=== PATIENT | female | born 1955 | race Caucasian/White ===

== ENCOUNTER 2024-07-12 13:21 | Inpatient (IN) ==
[2024-07-12] MEDS: cefTRIAXone 1 GM VIAL IV ONE (14:05)
[2024-07-12 14:09] LABS: Basophils # (Auto) 0 K/mcL (0.00-0.30); Basophils % (Auto) 0 % (0.0-2.0); Eosinophils # (Auto) 0 K/mcL (0.00-0.70); Eosinophils % (Auto) 0 % (0.0-7.0); Hematocrit 42.7 % (34.1-44.9); Hemoglobin 14.5 g/dL (11.2-15.7); Lymphocytes # (Auto) 1.07 K/mcL (1.50-4.80); Lymphocytes % (Auto) 7.3 % (15.5-49.0); Mean Cell Volume 90.3 fL (80.0-100.0); Mean Platelet Volume 11.4 fL (8.8-12.5); Monocytes # (Auto) 0.92 K/mcL (0.10-0.90); Monocytes % (Auto) 6.2 % (1.0-12.0); Neutrophils % (Auto) 85.7 % (38.0-78.0); Platelet Count 235 K/mcL (140-440); RBC 4.73 M/mcL (3.59-5.38); Red Cell Distribution Width 13.9 % (11.5-14.5); WBC 14.7 K/mcL (4.5-11.0)
[2024-07-12] MEDS: LACTATED RINGERS 1,000 ML IV ONE (14:09)
[2024-07-12 14:26] LABS: Alcohol, Blood < 10.1 mg/dL; Alcohol,Blood < 0.010 gm/dL (<0.010)
[2024-07-12 14:33] LABS: ALT/SGPT 98 U/L (<40); AST/SGOT 100 U/L (<32); Albumin 2.6 gm/dL (3.2-5.2); Albumin/Globulin Ratio 0.6 (1.0-2.3); Alkaline Phosphatase 102 U/L (39-117); Bilirubin,Total 1.5 mg/dL (0.1-1.0); Blood Urea Nitrogen 11 mg/dL (8-23); Calcium 8.6 mg/dL (8.6-10.4); Carbon Dioxide 23 mmol/L (22-30); Chloride 90 mmol/L (96-108); Globulin 4.6 gm/dL (2.2-3.7); Glomerular Filtration Rate 100; Glucose 331 mg/dL (70-105); Potassium 3.5 mmol/L (3.3-5.1); Sodium 127 mmol/L (133-145)
[2024-07-12 15:10] LABS: Appearance,Urine Clear (Clear); Bacteria,Urine Few /hpf (0); Bilirubin,Urine Negative (Negative); Color,Urine Yellow; Glucose,Urine (UA) 500 mg/dL (Negative); Ketones,Urine 80 mg/dL (Negative); Leukocyte Esterase,Urine Negative /uL (Negative); Nitrate,Urine Negative (Negative); Protein,Urine 100 mg/dL (Negative); Urine Blood Trace-intact ery/mcL (Negative); Urine RBC 0 /hpf (0-3); Urine Squamous Epithelial Cell 2 /hpf (0-4); Urine WBC 6 /hpf (0-4)
[2024-07-12] MEDS: 0.9 % SODIUM CHLORIDE 1,000 ML IV ONE (15:17)
[2024-07-12] MEDS: LACTATED RINGERS 1,000 ML IV SCH (16:32)
[2024-07-12] MEDS: DOXYCYCLINE 100 MG in DEXTROSE 5% IN WATER 100 ML IV SCH (16:32)
[2024-07-12] MEDS ORDERED: ONDANSETRON 4 MG/2 ML VIAL IV PRN (17:11)
[2024-07-12] MEDS ORDERED: POLYETHYLENE GLYCOL 3350 17 GM PACKET PO PRN (17:11)
[2024-07-12] MEDS ORDERED: DEXTROSE 50% 50 ML VIAL IV PRN (17:11)
[2024-07-12] MEDS ORDERED: SENNOSIDES 1 TABLET PO PRN (17:11)
[2024-07-12] MEDS ORDERED: DEXTROSE 31 GM ORAL.SUSP PO PRN (17:11)
[2024-07-12] MEDS: INSULIN LISPRO 1 UNIT/0.01 ML UNIT SQ SCH (17:44)
[2024-07-12] MEDS: METOPROLOL TARTRATE 5 MG/5 ML VIAL IV ONE ×2 (18:37→20:15)
[2024-07-12] MEDS ORDERED: ALBUTEROL SULFATE 2.5 MG/3 ML NEBULIZER NEB PRN (19:19)
[2024-07-12] MEDS: ACETAMINOPHEN 325 MG TABLET PO PRN (20:14)
[2024-07-12] MEDS ORDERED: CYCLOBENZAPRINE 10 MG TABLET PO PRN (20:31)
[2024-07-12] MEDS: ATORVASTATIN 20 MG TABLET PO SCH (20:55)
[2024-07-12] MEDS: traZODone HCL 150 MG TABLET PO SCH (20:55)
[2024-07-12] MEDS: 0.9 % SODIUM CHLORIDE 10 ML SYRINGE IV SCH (21:04)
[2024-07-12] MEDS ORDERED: ALBUTEROL SULFATE 2.5 MG/3 ML NEBULIZER NEB SCH (23:00)
[2024-07-12] MEDS: ALBUTEROL SULFATE 2.5 MG/3 ML NEBULIZER NEB SCH (23:31)
[2024-07-12] MEDS ORDERED: IOPAMIDOL 100 ML BOTTLE IV ONE (23:38)
[2024-07-13] MEDS: ALBUTEROL SULFATE 2.5 MG/3 ML NEBULIZER NEB SCH ×2 (01:03→11:20)
[2024-07-13 06:41] LABS: Basophils # (Auto) 0.01 K/mcL (0.00-0.30); Basophils % (Auto) 0.1 % (0.0-2.0); Eosinophils # (Auto) 0.01 K/mcL (0.00-0.70); Eosinophils % (Auto) 0.1 % (0.0-7.0); Hematocrit 38.3 % (34.1-44.9); Hemoglobin 12.7 g/dL (11.2-15.7); Lymphocytes # (Auto) 1.12 K/mcL (1.50-4.80); Mean Cell Volume 92.7 fL (80.0-100.0); Mean Corpuscular HGB Conc 33.2 g/dL (31.0-36.0); Mean Platelet Volume 10.6 fL (8.8-12.5); Monocytes # (Auto) 0.77 K/mcL (0.10-0.90); Monocytes % (Auto) 6.2 % (1.0-12.0); Platelet Count 224 K/mcL (140-440); RBC 4.13 M/mcL (3.59-5.38); Red Cell Distribution Width 14.1 % (11.5-14.5); WBC 12.4 K/mcL (4.5-11.0)
[2024-07-13 07:20] LABS: ALT/SGPT 93 U/L (<40); AST/SGOT 116 U/L (<32); Albumin 2.3 gm/dL (3.2-5.2); Albumin/Globulin Ratio 0.6 (1.0-2.3); Alkaline Phosphatase 87 U/L (39-117); Bilirubin,Direct 0.7 mg/dL (<0.3); Bilirubin,Total 1.3 mg/dL (0.1-1.0); Blood Urea Nitrogen 10 mg/dL (8-23); Calcium 8.4 mg/dL (8.6-10.4); Carbon Dioxide 26 mmol/L (22-30); Chloride 94 mmol/L (96-108); Globulin 3.9 gm/dL (2.2-3.7); Glomerular Filtration Rate 107; Glucose 250 mg/dL (70-105); Lactate Dehydrogenase 323 U/L (135-225); Phosphorous 2.1 mg/dL (2.5-4.5); Potassium 2.9 mmol/L (3.3-5.1); Sodium 132 mmol/L (133-145); Triglycerides 148 mg/dL (<150); Uric Acid 1.9 mg/dL (2.5-8.0)
[2024-07-13] MEDS: IPRATROPIUM/ALBUTEROL 3 ML AMPUL.NEB NEB PRN (07:33)
[2024-07-13] MEDS: cefTRIAXone 1 GM VIAL IV SCH (08:30)
[2024-07-13] MEDS: ENOXAPARIN 40 MG/0.4 ML SYRINGE SQ SCH (08:30)
[2024-07-13] MEDS: HYDROCORTISONE SOD SUCC 100 MG VIAL IV SCH (08:31)
[2024-07-13] MEDS: DULoxetine 30 MG CAPSULE PO SCH ×2 (08:31→08:32)
[2024-07-13] MEDS: POTASSIUM PHOSPHATE 40 MEQ in DEXTROSE 5% IN WATER 500 ML IV ONE (08:32)
[2024-07-13] MEDS: POTASSIUM CHLORIDE 20 MEQ TABLET PO ONE (08:32)
[2024-07-13 17:14] LABS: ALT/SGPT 99 U/L (<40); AST/SGOT 123 U/L (<32); Albumin 2.1 gm/dL (3.2-5.2); Albumin/Globulin Ratio 0.5 (1.0-2.3); Alkaline Phosphatase 97 U/L (39-117); Bilirubin,Direct 0.5 mg/dL (<0.3); Blood Urea Nitrogen 10 mg/dL (8-23); Calcium 8.9 mg/dL (8.6-10.4); Carbon Dioxide 22 mmol/L (22-30); Chloride 95 mmol/L (96-108); Globulin 4.6 gm/dL (2.2-3.7); Glomerular Filtration Rate 107; Glucose 344 mg/dL (70-105); Lactate Dehydrogenase 372 U/L (135-225); Phosphorous 2.8 mg/dL (2.5-4.5); Potassium 4.1 mmol/L (3.3-5.1); Sodium 128 mmol/L (133-145); Triglycerides 163 mg/dL (<150); Uric Acid 1.6 mg/dL (2.5-8.0)
[2024-07-13] MEDS: INSULIN GLARGINE, HUMAN 1 UNIT/0.01 ML SQ SCH (21:23)
[2024-07-13] MEDS: INSULIN LISPRO 1 UNIT/0.01 ML UNIT SQ ONE ×2 (21:24→21:33)
[2024-07-14 06:43] LABS: Basophils # (Auto) 0 K/mcL (0.00-0.30); Basophils % (Auto) 0 % (0.0-2.0); Eosinophils # (Auto) 0.02 K/mcL (0.00-0.70); Eosinophils % (Auto) 0.2 % (0.0-7.0); Hematocrit 35.3 % (34.1-44.9); Hemoglobin 11.7 g/dL (11.2-15.7); Lymphocytes # (Auto) 1.14 K/mcL (1.50-4.80); Lymphocytes % (Auto) 14.1 % (15.5-49.0); Mean Cell Volume 92.2 fL (80.0-100.0); Mean Corpuscular HGB Conc 33.1 g/dL (31.0-36.0); Mean Platelet Volume 10.7 fL (8.8-12.5); Monocytes % (Auto) 9.9 % (1.0-12.0); Neutrophils % (Auto) 74.7 % (38.0-78.0); Platelet Count 218 K/mcL (140-440); RBC 3.83 M/mcL (3.59-5.38); Red Cell Distribution Width 14.2 % (11.5-14.5); WBC 8.1 K/mcL (4.5-11.0)
[2024-07-14 07:10] LABS: ALT/SGPT 90 U/L (<40); AST/SGOT 97 U/L (<32); Albumin 2.1 gm/dL (3.2-5.2); Albumin/Globulin Ratio 0.6 (1.0-2.3); Alkaline Phosphatase 78 U/L (39-117); Bilirubin,Direct 0.5 mg/dL (<0.3); Bilirubin,Total 0.8 mg/dL (0.1-1.0); Blood Urea Nitrogen 12 mg/dL (8-23); Calcium 8.7 mg/dL (8.6-10.4); Carbon Dioxide 27 mmol/L (22-30); Chloride 98 mmol/L (96-108); Globulin 3.7 gm/dL (2.2-3.7); Glomerular Filtration Rate 118; Glucose 239 mg/dL (70-105); Lactate Dehydrogenase 237 U/L (135-225); Phosphorous 2.3 mg/dL (2.5-4.5); Potassium 3.1 mmol/L (3.3-5.1); Sodium 134 mmol/L (133-145); Triglycerides 150 mg/dL (<150); Uric Acid 1.9 mg/dL (2.5-8.0)
[2024-07-14] MEDS: HYDROCORTISONE SOD SUCC 100 MG VIAL IV SCH (08:41)
[2024-07-14] MEDS: POTASSIUM CHLORIDE 20 MEQ TABLET PO ONE ×2 (08:41→21:07)
[2024-07-14] MEDS: cefTRIAXone 2 GM in DEXTROSE 5% IN WATER 50 ML IV SCH (09:44)
[2024-07-14] MEDS: DULoxetine 30 MG CAPSULE PO SCH ×2 (10:51→21:05)
[2024-07-14] MEDS: POTASSIUM PHOSPHATE 40 MEQ in DEXTROSE 5% IN WATER 500 ML IV ONE (10:52)
[2024-07-14] MEDS: FUROSEMIDE 40 MG/4 ML VIAL IV ONE (11:07)
[2024-07-14] MEDS: INSULIN REGULAR, HUMAN 1 UNIT/0.01 ML UNIT IV ONE (17:06)
[2024-07-14] MEDS: INSULIN GLARGINE, HUMAN 1 UNIT/0.01 ML SQ SCH (21:04)
[2024-07-15 07:01] LABS: Basophils # (Auto) 0.01 K/mcL (0.00-0.30); Basophils % (Auto) 0.1 % (0.0-2.0); Eosinophils # (Auto) 0.04 K/mcL (0.00-0.70); Eosinophils % (Auto) 0.6 % (0.0-7.0); Hematocrit 36.7 % (34.1-44.9); Hemoglobin 12.1 g/dL (11.2-15.7); Lymphocytes # (Auto) 1.94 K/mcL (1.50-4.80); Lymphocytes % (Auto) 27.9 % (15.5-49.0); Mean Cell Volume 92.7 fL (80.0-100.0); Mean Platelet Volume 11.1 fL (8.8-12.5); Monocytes # (Auto) 0.66 K/mcL (0.10-0.90); Monocytes % (Auto) 9.5 % (1.0-12.0); Neutrophils % (Auto) 60.2 % (38.0-78.0); Platelet Count 234 K/mcL (140-440); RBC 3.96 M/mcL (3.59-5.38); Red Cell Distribution Width 14.4 % (11.5-14.5)
[2024-07-15 07:50] LABS: ALT/SGPT 89 U/L (<40); AST/SGOT 70 U/L (<32); Albumin 2.2 gm/dL (3.2-5.2); Albumin/Globulin Ratio 0.6 (1.0-2.3); Alkaline Phosphatase 77 U/L (39-117); Bilirubin,Direct 0.4 mg/dL (<0.3); Bilirubin,Total 0.7 mg/dL (0.1-1.0); Blood Urea Nitrogen 14 mg/dL (8-23); Calcium 9.1 mg/dL (8.6-10.4); Carbon Dioxide 25 mmol/L (22-30); Chloride 101 mmol/L (96-108); Globulin 3.8 gm/dL (2.2-3.7); Glomerular Filtration Rate 107; Glucose 218 mg/dL (70-105); Lactate Dehydrogenase 261 U/L (135-225); Phosphorous 3.5 mg/dL (2.5-4.5); Potassium 3.7 mmol/L (3.3-5.1); Sodium 139 mmol/L (133-145); Triglycerides 153 mg/dL (<150); Uric Acid 2.7 mg/dL (2.5-8.0)
[2024-07-15] MEDS: DOXYCYCLINE HYCLATE 100 MG TABLET.ORL PO SCH (09:50)
[2024-07-15] MEDS: ALBUTEROL SULFATE 2.5 MG/3 ML NEBULIZER NEB SCH (12:54)
[2024-07-15] MEDS: CEFDINIR 300 MG CAPSULE PO SCH (20:53)
[2024-07-16 07:00] LABS: Basophils # (Auto) 0.02 K/mcL (0.00-0.30); Basophils % (Auto) 0.3 % (0.0-2.0); Eosinophils # (Auto) 0.04 K/mcL (0.00-0.70); Eosinophils % (Auto) 0.5 % (0.0-7.0); Hemoglobin 12.8 g/dL (11.2-15.7); Lymphocytes # (Auto) 2.73 K/mcL (1.50-4.80); Lymphocytes % (Auto) 34.3 % (15.5-49.0); Mean Cell Volume 93.8 fL (80.0-100.0); Mean Corpuscular HGB Conc 32.8 g/dL (31.0-36.0); Mean Platelet Volume 10.8 fL (8.8-12.5); Monocytes # (Auto) 0.66 K/mcL (0.10-0.90); Monocytes % (Auto) 8.3 % (1.0-12.0); Neutrophils % (Auto) 55.1 % (38.0-78.0); Platelet Count 289 K/mcL (140-440); RBC 4.16 M/mcL (3.59-5.38); Red Cell Distribution Width 14.5 % (11.5-14.5)
[2024-07-16 07:13] LABS: C-Reactive Protein 6.64 mg/dL (0.03-0.80)
[2024-07-16 07:36] LABS: ALT/SGPT 100 U/L (<40); AST/SGOT 81 U/L (<32); Albumin 2.5 gm/dL (3.2-5.2); Albumin/Globulin Ratio 0.7 (1.0-2.3); Alkaline Phosphatase 84 U/L (39-117); Bilirubin,Direct 0.4 mg/dL (<0.3); Bilirubin,Total 0.7 mg/dL (0.1-1.0); Blood Urea Nitrogen 13 mg/dL (8-23); Calcium 9.3 mg/dL (8.6-10.4); Carbon Dioxide 28 mmol/L (22-30); Chloride 101 mmol/L (96-108); Globulin 3.4 gm/dL (2.2-3.7); Glomerular Filtration Rate 107; Glucose 118 mg/dL (70-105); Lactate Dehydrogenase 265 U/L (135-225); Phosphorous 3.3 mg/dL (2.5-4.5); Potassium 3.6 mmol/L (3.3-5.1); Sodium 140 mmol/L (133-145); Triglycerides 155 mg/dL (<150); Uric Acid 2.6 mg/dL (2.5-8.0)
[2024-07-16 11:11] VITALS: O2SAT 96
[2024-07-16 12:33] VITALS: TEMP 97
[2024-07-17] MEDS ORDERED: HYDROCORTISONE 10 MG TABLET PO SCH (08:00)
== END 2024-07-16 11:38 | disposition home or self-care (01) | DRG 871 ==
LOC: ED 13:21 → ICU 17:00 → MEDSUR 07-15 10:50
PROVIDERS: ADMIT Student in an Organized Health Care Education/Training Program; ATTEND Student in an Organized Health Care Education/Training Program